=== PATIENT | male | born 1980 | race Hispanic/Latino ===

== ENCOUNTER 2017-03-01 16:01 | Outpatient (CLI) | payer OTHER ==
--- NOTE | 2017-03-01 18:39 | RAD ---
EXAM: RIGHT KNEE FOUR VIEWS 03/01/17 HISTORY: Anterior right knee pain. COMPARISON: None. FINDINGS: No significant joint effusion. Joint spaces are preserved. No malalignment or fracture. IMPRESSION: Unremarkable four views right knee. POS: [facility]
== END 2017-03-01 16:02 | disposition home or self-care (01) ==
LOC: MADRAD 16:01
PROVIDERS: ATTEND Family Medicine
DX: M25.561 Pain in right knee (principal)

== ENCOUNTER 2018-09-06 10:34 | Outpatient (CLI) | payer OTHER ==
[2018-09-06 11:18] LABS: #Basophils 0.3 thou/uL (0.0-0.2); #Eosinphils 0.3 thou/uL (0.0-0.7); #Lymphocytes 4.4 thou/uL (1.20-3.40); #Neutrophils 6.7 thou/uL (1.40-6.50); %Eosinophils 2.1 % (0.0-10.0); %Lymphocytes 35.1 % (21.0-51.0); %Monocytes 7.5 % (0.0-10.0); %Neutrophils 53.2 % (42.0-75.0); Hemoglobin 15.6 g/dL (14.0-18.0); Mean Corpuscular HGB CONC 32.3 g/dL (32.0-36.0); Mean Corpuscular Volume 89.7 fL (78.0-98.0); Mean Platelet Volume 11.5 fL (7.4-10.4); Platelet Count 221 thou/uL (130-400); RBC Distribution Width 12.6 % (11.5-14.5); White Blood Cell (WBC) Count 12.6 thou/uL (4.8-10.8)
[2018-09-06 11:21] LABS: Anion Gap 15 mmol/L (10-20); BUN (Urea Nitrogen) 16 mg/dL (8.9-20.6); Calc. Creatinine Clearance 0 mL/min (70-130); Calcium 9.3 mg/dL (7.8-10.44); Carbon Dioxide 24 mmol/L (22-29); Chloride 104 mmol/L (98-107); Estimated GFR-MDRD Greater than 90; Glucose 149 mg/dL (70-105); Potassium 4.1 mmol/L (3.5-5.1); Sodium 139 mmol/L (136-145)
--- NOTE | 2018-09-06 12:47 | CT ---
CT ABDOMEN WITH CONTRAST CT PELVIS WITH CONTRAST: History: Right lower quadrant pain. Evaluate for appendicitis. Comparison: None. FINDINGS: ABDOMEN CT: Lung bases are clear. Heart size is normal. No pericardial effusion. The visualized aorta has a alexis l caliber. No periaortic fat stranding. Limited evaluation of the solid organs due to lack of IV contrast administration. Heterogeneous atten uation of the liver likely due to areas of fatty infiltration and fatty sparring. Grossly no abnormal ity with regards to the solid organs. Gallbladder is unremarkable. No gastrohepatic, retrocrural or periportal lymphadenopathy. No mesenteric mass, lymphadenopathy free air or free fluid. Bilaterally, no obstructive uropathy. Limited evaluation of the alimentary canal by lack of oral contrast. No evidence of bowel obstruction . Ileo thecal junction is normal. Hyperdense material in the lumen of a normal caliber appendix milly tible with appendicolith. No periappendiceal inflammation. Colon is unremarkable. There is scattered fecal material present. Diverticulosis is noted. No diverticulitis. CT PELVIS: No mass, lymphadenopathy, free air or free fluid. Unremarkable urinary bladder. No lytic or blastic lesions in the osseous structures. IMPRESSION: 1. Normal caliber appendix. Appendicoliths are noted. No inflammation. 2. Heterogeneous attenuation of the liver likely due to hepatic steatosis with areas of fatty sparrin g. POS: [facility]
== END 2018-09-06 10:35 | disposition home or self-care (01) ==
LOC: MADLAB 10:34
PROVIDERS: ATTEND Nurse Practitioner Family
DX: R10.31 Right lower quadrant pain (principal); K38.9 Disease of appendix, unspecified
CPT/HCPCS: 36415; 74176; 80048; 85025